=== PATIENT | female | born 1955 | race Caucasian/White ===

== ENCOUNTER 2019-12-26 18:09 | Inpatient (IN) ==
[2019-12-26 21:14] LABS: Albumin 3.2 G/DL (3.4-5.0); Bilirubin,Total 1.4 MG/DL (0.2-1.0); Calcium 8.2 MG/DL (8.5-10.1); Osmolality,Calculated 235.6 MOS/KG (273-304); Total Protein 6.3 G/DL (6.4-8.3)
[2019-12-26] MEDS ORDERED: ALBUTEROL 2.5 MG/3 ML NEB RESP TX PRN (21:48)
[2019-12-26] MEDS ORDERED: PROMETHAZINE 25 MG/1 ML VIAL IM PRN (21:48)
[2019-12-26] MEDS ORDERED: THIAMINE 200 MG/2 ML VIAL IV ONE (21:48)
[2019-12-26] MEDS ORDERED: ONDANSETRON 4 MG/2 ML VIAL IV PRN (21:48)
[2019-12-26] MEDS ORDERED: DEXT 5% NACL 0.9% KCL 40 MEQ 40 MEQ/1,000 ML BAG IV SCH (22:00)
[2019-12-26] MEDS: ENOXAPARIN 40 MG/0.4 ML SYRINGE SUBCUT SCH (22:16)
[2019-12-26] MEDS: PANTOPRAZOLE 40 MG VIAL IV SCH (22:16)
[2019-12-26] MEDS: THIAMINE INJ 100 MG, FOLIC ACID INJ 1 MG, MAGNESIUM SULF INJ 2 GM, MULTIVITAMIN INJ 10 ... IV SCH (23:41)
[2019-12-27] MEDS: hydrALAZINE 20 MG/1 ML VIAL IV PRN ×2 (02:20→09:15)
[2019-12-27 04:06] LABS: Calcium 8.1 MG/DL (8.5-10.1); Osmolality,Calculated 244.9 MOS/KG (273-304)
[2019-12-27 04:23] LABS: Basophils % 0.3 % (0.0-0.8); Eosinophils % 0.2 % (0.00-10.9); Hematocrit 39.7 VOL% (35.7-47.0); Hemoglobin 15.1 GM/DL (12.0-16.0); Immature Granulocytes Absolute 0.12 #; Lymphocytes # 1.3 10*3/uL (1.4-4.0); Mean Corpuscular Volume 95.9 FL (87-102); Mean Platelet Volume 9.6 FL (9.6-12.0); Monocytes % 12.9 % (1.7-12.7); Neutrophils % 74.6 % (38.7-73.9); Platelet Count 264 T/CUMM (130-400); Red Blood Count 4.14 MC/CUMM (3.8-5.5); Red Cell Distribution Width 11.4 % (9.3-17.3); White Blood Count 12.2 T/CUMM (4-12)
[2019-12-27 05:06] LABS: Hypochromasia 1+
[2019-12-27 05:07] LABS: Microcytosis Slight; Platelet Estimate Normal
[2019-12-27] MEDS: POTASSIUM CHLORIDE 20 MEQ TABLET PO PRN ×4 (05:23→12:39)
[2019-12-27] MEDS ORDERED: NIFEdipine 10 MG CAPSULE PO PRN (09:22)
[2019-12-27] MEDS: POTASSIUM CHLORIDE 20 MEQ TABLET PO SCH ×4 (10:02→21:42)
[2019-12-27] MEDS: lisinopriL 10 MG TABLET PO SCH (10:18)
[2019-12-27 11:12] LABS: Osmolality,Calculated 243.9 MOS/KG (273-304)
[2019-12-27] MEDS: DIAZEPAM 5 MG TABLET PO PRN ×2 (11:14→15:25)
[2019-12-27] MEDS ORDERED: SODIUM CHLORIDE 0.9% 1,000 ML IV SCH (15:00)
[2019-12-27 19:40] LABS: Osmolality,Calculated 251.4 MOS/KG (273-304)
[2019-12-27] MEDS: PANTOPRAZOLE 40 MG VIAL IV SCH (21:40)
[2019-12-27] MEDS: ENOXAPARIN 40 MG/0.4 ML SYRINGE SUBCUT SCH (21:42)
[2019-12-27] MEDS: THIAMINE INJ 100 MG, FOLIC ACID INJ 1 MG, MAGNESIUM SULF INJ 2 GM, MULTIVITAMIN INJ 10 ... IV SCH (22:53)
[2019-12-28 03:44] LABS: Calcium 8.2 MG/DL (8.5-10.1); Osmolality,Calculated 252.4 MOS/KG (273-304)
[2019-12-28] MEDS: POTASSIUM CHLORIDE 20 MEQ TABLET PO PRN (08:03)
[2019-12-28] MEDS: lisinopriL 10 MG TABLET PO SCH (08:03)
[2019-12-28] MEDS ORDERED: lisinopriL 10 MG TABLET PO SCH (10:52)
[2019-12-28] MEDS: THIAMINE INJ 100 MG, FOLIC ACID INJ 1 MG, MAGNESIUM SULF INJ 2 GM, MULTIVITAMIN INJ 10 ... IV SCH ×2 (10:53→21:15)
[2019-12-28] MEDS: LEVOTHYROXINE 75 MCG TABLET PO SCH (11:39)
[2019-12-28] MEDS: MENTHOL/ZINC OXIDE OINT 71 GM JAR TOP SCH ×2 (14:28→21:15)
[2019-12-28] MEDS: ENOXAPARIN 40 MG/0.4 ML SYRINGE SUBCUT SCH (21:14)
[2019-12-28] MEDS: PANTOPRAZOLE 40 MG VIAL IV SCH (21:15)
[2019-12-28] MEDS: LORazepam 2 MG/1 ML VIAL IV PRN (21:15)
[2019-12-29] MEDS: LEVOTHYROXINE 75 MCG TABLET PO SCH (06:18)
[2019-12-29 07:21] LABS: Basophils # 0.1 10*3/uL (0.0-0.2); Basophils % 0.7 % (0.0-0.8); Eosinophils # 0.3 10*3/uL (0.0-0.87); Eosinophils % 2.4 % (0.00-10.9); Hematocrit 37.6 VOL% (35.7-47.0); Hemoglobin 13.5 GM/DL (12.0-16.0); Immature Granulocytes % 0.8 %; Immature Granulocytes Absolute 0.09 #; Lymphocytes # 1.7 10*3/uL (1.4-4.0); Mean Corpuscular HGB Conc 35.9 GM/DL (32-36); Monocytes % 8.3 % (1.7-12.7); Neutrophils % 73.8 % (38.7-73.9); Platelet Count 264 T/CUMM (130-400); Red Blood Count 3.76 MC/CUMM (3.8-5.5); Red Cell Distribution Width 11.9 % (9.3-17.3); White Blood Count 11.9 T/CUMM (4-12)
[2019-12-29 07:39] LABS: Calcium 8.2 MG/DL (8.5-10.1); Osmolality,Calculated 249.4 MOS/KG (273-304)
[2019-12-29] MEDS: lisinopriL 10 MG TABLET PO SCH (08:29)
[2019-12-29] MEDS: MENTHOL/ZINC OXIDE OINT 71 GM JAR TOP SCH ×2 (08:29→21:29)
[2019-12-29] MEDS: THIAMINE INJ 100 MG, FOLIC ACID INJ 1 MG, MAGNESIUM SULF INJ 2 GM, MULTIVITAMIN INJ 10 ... IV SCH (21:28)
[2019-12-29] MEDS: ENOXAPARIN 40 MG/0.4 ML SYRINGE SUBCUT SCH (21:28)
[2019-12-29] MEDS: PANTOPRAZOLE 40 MG VIAL IV SCH (21:29)
[2019-12-30] MEDS: LEVOTHYROXINE 75 MCG TABLET PO SCH (06:20)
[2019-12-30] MEDS: lisinopriL 10 MG TABLET PO SCH (08:37)
[2019-12-30] MEDS: SODIUM CHLORIDE 1 GM TABLET PO SCH ×4 (08:38→21:23)
[2019-12-30] MEDS: MENTHOL/ZINC OXIDE OINT 71 GM JAR TOP SCH ×2 (08:38→21:23)
[2019-12-30] MEDS: FOLIC ACID 1 MG TABLET PO SCH (10:11)
[2019-12-30] MEDS: THIAMINE 100 MG TABLET PO SCH (10:11)
[2019-12-30] MEDS: PANTOPRAZOLE 40 MG TABLET PO SCH (10:11)
[2019-12-30] MEDS: LORazepam 2 MG/1 ML VIAL IV PRN (21:23)
[2019-12-30] MEDS: ENOXAPARIN 40 MG/0.4 ML SYRINGE SUBCUT SCH (21:23)
[2019-12-31] MEDS: LEVOTHYROXINE 75 MCG TABLET PO SCH (06:15)
[2019-12-31] MEDS: FOLIC ACID 1 MG TABLET PO SCH (08:38)
[2019-12-31] MEDS: MENTHOL/ZINC OXIDE OINT 71 GM JAR TOP SCH (08:38)
[2019-12-31] MEDS: PANTOPRAZOLE 40 MG TABLET PO SCH (08:38)
[2019-12-31] MEDS: THIAMINE 100 MG TABLET PO SCH (08:38)
[2019-12-31] MEDS: SODIUM CHLORIDE 1 GM TABLET PO SCH ×2 (08:38→12:50)
[2019-12-31] MEDS: lisinopriL 10 MG TABLET PO SCH (08:38)
[2019-12-31 11:30] VITALS: BP 144/67
== END 2019-12-31 16:53 | disposition home or self-care (01) | DRG 640 ==
LOC: SUATTDRO 20:17 → N.ICU 20:17 → N.3E 12-28 12:48
PROVIDERS: ADMIT Internal Medicine; ATTEND Family Medicine